=== PATIENT | male | born 1955 | race Native Hawaiian/Other Pacific Islander ===

== ENCOUNTER 2016-09-02 10:57 | Outpatient (CLI) | payer OTHER ==
[~2016-09-02 10:57] MED LIST: ASPIRIN81 M2 OR; CARV6.25 PO; CETIRIZINE10 MG PO; CLOPIDOGREL75 MG PO; FLUT0.05 NAS; FURO40TA93 PO; LEVAQUIN500 MG OR; LISITAB PO; MELOXICAM15 MG OR; METHYLPRED4 M1 PO; NITROSTAT0.4 MG SL; OMEPRAZOLE20.6 MGDR OR; PROAIR HFA IN
[2016-09-02 11:25] LABS: PLATELET COUNT 129 K/uL (142-355)
[2016-09-02 11:52] LABS: POTASSIUM 4.3 mmol/L (3.6-5.2); SODIUM 133 mmol/L (136-145)
== END 2016-09-02 11:57 | disposition home or self-care (01) ==
LOC: LABW 10:57
PROVIDERS: Internal Medicine Cardiovascular Disease
DX: R06.02 Shortness of breath (principal); J44.9 Chronic obstructive pulmonary disease, unspecified
CPT/HCPCS: 36415; 80048; 83880; 85027

== ENCOUNTER 2016-09-12 05:11 | Emergency (ER) | payer OTHER ==
[~2016-09-12] VITALS: Ht 165.1 cm; Wt 86.2 kg
[2016-09-12] MEDS ORDERED: NEURONTIN 100M100 MG PO (05:51)
[2016-09-12] MEDS ORDERED: RANO1000T PO (05:52)
[2016-09-12] MEDS ORDERED: PRAS10TA PO (05:52)
[2016-09-12] MEDS ORDERED: DIPH25CA90 PO (05:53)
[2016-09-12] MEDS ORDERED: LIPITOR10 MG PO (05:54)
[2016-09-12] MEDS ORDERED: PRINIVIL10 MG PO (05:55)
[2016-09-12 05:59] LABS: PLATELET COUNT 270 K/uL (142-355)
[2016-09-12] MEDS ORDERED: ALBUTEROL0.083 % IN (06:03)
[2016-09-12 06:10] LABS: POTASSIUM 4.8 mmol/L (3.6-5.2); SODIUM 130 mmol/L (136-145)
[2016-09-12 07:43] VITALS: BP 136/51; TEMP 98.1
== END 2016-09-12 07:45 | disposition short-term general hospital (02) ==
LOC: ED 05:11
PROVIDERS: Specialist
DX: I21.29 ST elevation (STEMI) myocardial infarction involving other sites (principal)
CPT/HCPCS: 36415; 80053; 82550; 84484; 85027; 85610; 85730; 96365; 96366; 96374; 96375; 96376; 99291; J1644; J2270; J2405; J3490

== ENCOUNTER 2016-09-12 07:54 | Outpatient (CLI) | payer OTHER ==
[~2016-09-12 07:54] MED LIST changes: +ALBUTEROL0.083 % IN; +DIPH25CA90 PO; +LIPITOR10 MG PO; +NEURONTIN 100M100 MG PO; +PRAS10TA PO; +PRINIVIL10 MG PO; +RANO1000T PO
== END 2016-09-12 09:04 | disposition short-term general hospital (02) ==
LOC: AMB 07:54
DX: I21.29 ST elevation (STEMI) myocardial infarction involving other sites (principal)
CPT/HCPCS: A0425; A0427

== ENCOUNTER 2016-09-23 12:32 | Outpatient (CLI) | payer OTHER ==
[2016-09-23 12:58] LABS: POTASSIUM 4.6 mmol/L (3.6-5.2); SODIUM 132 mmol/L (136-145)
== END 2016-09-23 23:45 | disposition home or self-care (01) ==
LOC: LABW 12:32
PROVIDERS: Internal Medicine Cardiovascular Disease
DX: I50.9 Heart failure, unspecified (principal); Z79.899 Other long term (current) drug therapy; Z51.81 Encounter for therapeutic drug level monitoring
CPT/HCPCS: 80048; 83880

== ENCOUNTER 2016-11-10 11:26 | Outpatient (CLI) | payer OTHER | END 2016-11-10 11:36 | disposition short-term general hospital (02) | LOC: AMB 11:26 | DX: R06.02 Shortness of breath (principal); R07.89 Other chest pain; I49.8 Other specified cardiac arrhythmias | CPT/HCPCS: A0425; A0427 ==

== ENCOUNTER 2016-11-10 18:42 | Outpatient (CLI) | payer OTHER | END 2016-11-10 19:55 | disposition short-term general hospital (02) | LOC: AMB 18:42 | DX: R06.09 Other forms of dyspnea (principal); R07.89 Other chest pain; J96.90 Respiratory failure, unspecified, unspecified whether with hypoxia or hypercapnia; I48.92 Unspecified atrial flutter; I45.81 Long QT syndrome; Z98.890 Other specified postprocedural states; Z79.899 Other long term (current) drug therapy | CPT/HCPCS: A0425; A0427 ==

== ENCOUNTER 2017-06-30 10:56 | Outpatient (CLI) | payer OTHER ==
[2017-06-30 11:17] LABS: POTASSIUM 4.3 mmol/L (3.6-5.2); SODIUM 134 mmol/L (136-145)
== END 2017-06-30 19:11 | disposition home or self-care (01) ==
LOC: LABW 10:56
PROVIDERS: Internal Medicine Cardiovascular Disease
DX: I50.9 Heart failure, unspecified (principal); Z79.899 Other long term (current) drug therapy; Z51.81 Encounter for therapeutic drug level monitoring
CPT/HCPCS: 36415; 80048; 83880

== ENCOUNTER 2017-07-19 10:16 | Outpatient (CLI) | payer OTHER ==
[2017-07-19 10:56] LABS: PLATELET COUNT 303 K/uL (142-355)
== END 2017-07-19 19:05 | disposition home or self-care (01) ==
LOC: LABW 10:16
PROVIDERS: Internal Medicine Cardiovascular Disease
DX: Z79.899 Other long term (current) drug therapy (principal); Z51.81 Encounter for therapeutic drug level monitoring
CPT/HCPCS: 36415; 80048; 85027

== ENCOUNTER 2017-09-06 09:16 | Inpatient (IN) | payer OTHER ==
[~2017-09-06] VITALS: Ht 162.6 cm; Wt 83.5 kg
[2017-09-06 09:05] VITALS: BP 140/73; TEMP 98.4
[2017-09-06 09:25] VITALS: BP 134/53
[2017-09-06 09:47] LABS: PLATELET COUNT 364 K/uL (142-355)
[2017-09-06 09:53] LABS: POTASSIUM 5.1 mmol/L (3.6-5.2)
[2017-09-06 10:05] VITALS: BP 123/68
[2017-09-06 13:01] VITALS: BP 111/49; TEMP 97.8; Ht 162.6 cm; Wt 83.5 kg
[2017-09-06] MEDS ORDERED: ELIQUIS2.5 MG OR (13:19)
[2017-09-06] MEDS ORDERED: ENTRESTO 24-261 TAB PO (13:21)
[2017-09-06] MEDS ORDERED: SPIRONOLACT25 MG PO (13:21)
[2017-09-06] MEDS ORDERED: CARV12.5 PO (13:24)
[2017-09-06] MEDS ORDERED: PACERONE200 MG OR (13:26)
[2017-09-06 16:00] VITALS: BP 114/51; TEMP 97.7
[2017-09-06 20:21] VITALS: BP 125/67; TEMP 97.5
[2017-09-07] VITALS: BP 126/66; TEMP 97.5
[2017-09-07 04:00] VITALS: BP 114/59; TEMP 97.8
[2017-09-07 06:07] LABS: POTASSIUM 4.1 mmol/L (3.6-5.2)
[2017-09-07 06:28] LABS: PLATELET COUNT 270 K/uL (142-355)
[2017-09-07 08:00] VITALS: BP 134/56; TEMP 98.3
[2017-09-07 11:31] VITALS: BP 133/69; TEMP 97.7
[2017-09-07 16:00] VITALS: BP 131/65; BP 146/64; TEMP 98.6; TEMP 98.8
[2017-09-07 20:00] VITALS: BP 131/66; TEMP 97.4
[2017-09-08] VITALS: BP 140/59; TEMP 97.1
[2017-09-08 04:00] VITALS: BP 128/60; TEMP 97.7
[2017-09-08 05:01] LABS: PLATELET COUNT 309 K/uL (142-355)
[2017-09-08 05:17] LABS: POTASSIUM 4.4 mmol/L (3.6-5.2)
[2017-09-08 20:10] VITALS: BP 117/66; TEMP 97.5
[2017-09-08 23:57] VITALS: BP 105/38; TEMP 97.8
[2017-09-09 04:00] VITALS: BP 112/41; TEMP 97.9
[2017-09-09 05:51] LABS: POTASSIUM 3.7 mmol/L (3.6-5.2)
[2017-09-09 06:10] LABS: PLATELET COUNT 247 K/uL (142-355)
[2017-09-09 07:58] VITALS: BP 112/56; TEMP 97.7
[2017-09-09 11:48] VITALS: BP 101/47; TEMP 97.9
[2017-09-09] MEDS ORDERED: SPIR50TA8 PO (13:26)
[2017-09-09] MEDS ORDERED: PROTONIX 40MG TAB PO (13:26)
== END 2017-09-09 13:55 | disposition home or self-care (01) | DRG 291 ==
LOC: ED 09:16 → MED/SURG 09:18
PROVIDERS: ADMIT Family Medicine
DX: I13.0 Hypertensive heart and chronic kidney disease with heart failure and stage 1 through stage 4 chronic kidney disease, or unspecified chronic kidney disease (principal); I50.31 Acute diastolic (congestive) heart failure; N18.3 Chronic kidney disease, stage 3 (moderate); I25.2 Old myocardial infarction; J44.9 Chronic obstructive pulmonary disease, unspecified; N40.0 Benign prostatic hyperplasia without lower urinary tract symptoms
CPT/HCPCS: 36415; 36600; 80048; 80053; 82805; 83880; 84484; 85027; 93005; 93306; 94640; 94664; 94760; 96372; 96374; 96375; 99284; J1650; J1885; J1940; J2270; J2920

== ENCOUNTER → 2017-09-22 12:30 | Outpatient (CLI) | payer OTHER ==
[~2017-09-22 12:30] MED LIST changes: +CARV12.5 PO; +ELIQUIS2.5 MG OR; +ENTRESTO 24-261 TAB PO; +PACERONE200 MG OR; +PROTONIX 40MG TAB PO; +SPIR50TA8 PO; +SPIRONOLACT25 MG PO
[2017-09-22 13:28] LABS: POTASSIUM 4.5 mmol/L (3.6-5.2)
== END | disposition home or self-care (01) ==
LOC: LABW 12:30
PROVIDERS: Internal Medicine Cardiovascular Disease
DX: I50.9 Heart failure, unspecified (principal); Z79.899 Other long term (current) drug therapy; Z51.81 Encounter for therapeutic drug level monitoring
CPT/HCPCS: 36415; 80048; 83880

== ENCOUNTER 2017-11-10 10:39 | Outpatient (CLI) | payer OTHER ==
[2017-11-10 11:17] LABS: POTASSIUM 5.1 mmol/L (3.6-5.2)
[2017-11-10 11:19] LABS: PLATELET COUNT 215 K/uL (142-355)
== END 2017-11-11 10:39 | disposition home or self-care (01) ==
LOC: LABW 10:39
PROVIDERS: Internal Medicine Cardiovascular Disease
DX: Z79.899 Other long term (current) drug therapy (principal); Z51.81 Encounter for therapeutic drug level monitoring
CPT/HCPCS: 36415; 80048; 80076; 85027

== ENCOUNTER 2018-03-21 10:39 | Outpatient (CLI) | payer OTHER ==
[2018-03-21 11:21] LABS: POTASSIUM 3.9 mmol/L (3.6-5.2)
== END 2018-03-21 20:26 | disposition home or self-care (01) ==
LOC: LABW 10:39
PROVIDERS: Internal Medicine Nephrology
DX: Z79.899 Other long term (current) drug therapy (principal)
CPT/HCPCS: 36415; 80048

== ENCOUNTER 2018-03-24 12:55 | Observation (INO) | payer OTHER ==
[~2018-03-24] VITALS: Ht 162.6 cm; Wt 62.7 kg
[2018-03-24 13:06] VITALS: BP 114/40; TEMP 99.9
[2018-03-24] MEDS ORDERED: STOOL SOFTNR100 MG OR (13:17)
[2018-03-24] MEDS ORDERED: PANTOPRAZOLE 40MG TA PO (13:17)
[2018-03-24] MEDS ORDERED: ATEN25TA21 PO (13:18)
[2018-03-24] MEDS ORDERED: RAMI2.5C2 PO (13:18)
[2018-03-24] MEDS ORDERED: CLOPIDOGREL75 MG PO (13:19)
[2018-03-24 13:45] LABS: PLATELET COUNT 385 K/uL (142-355)
[2018-03-24 13:49] LABS: POTASSIUM 4.2 mmol/L (3.6-5.2)
[2018-03-24 14:15] VITALS: BP 114/45
[2018-03-24 17:04] VITALS: BP 106/55; TEMP 98; Ht 162.6 cm; Wt 62.7 kg
[2018-03-24 20:20] VITALS: BP 105/51; TEMP 97.6
[2018-03-25 00:20] VITALS: BP 112/54; TEMP 97.9
--- NOTE | 2018-03-25 03:24 | NUR ---
@ 2039 SUPPORT SERVICES COORDINATOR CALLED DR BHANDARI ABOUT PATIENTS OUTPUT, NEW ORDERS RECEIVED AND CARRIED OUT, PT TO BE ON STRICT I&O, ALLOWED ONLY 2 LITERS OF INPUT PER 24 HOURS, AND LASIX 40MG Q8 HRS X2, DR BHANDARI WILL REASSESS PT TOMORROW AND DECIDE WHETHER OR NOT TO START DIALYSIS
[2018-03-25 04:29] VITALS: BP 105/48; TEMP 99.3
[2018-03-25 05:07] LABS: PLATELET COUNT 370 K/uL (142-355)
[2018-03-25 05:18] LABS: POTASSIUM 4.6 mmol/L (3.6-5.2)
[2018-03-25 08:00] VITALS: BP 106/51; TEMP 98.3
[2018-03-25 12:00] VITALS: BP 100/57; TEMP 97.6
--- NOTE | 2018-03-25 12:00 | NUR ---
REPORT CALLED TO GISELA LEONARD AT [facility] IN [place]. ALL PERTINENT INFORMATION RELATING TO THE PATIENT ANSWERED. EXPLAINED TO ACCEPTING NURSE THAT THE PATIENT MAY BE A LITTLE WHILE COMING. NURSE UNDERSTOOD ALL INFORMATION GIVEN.
--- NOTE | 2018-03-25 14:00 | NUR ---
[facility] AT BEDSIDE TO TRANSPORT PATIENT. PT AMBULATED TO STRETCHER. O2 INTACT. PT TOLERATING WELL. NAD NOTED.
== END 2018-03-25 14:15 | disposition short-term general hospital (02) ==
LOC: ED 12:55 → MED/SURG 14:16
DX: I13.2 Hypertensive heart and chronic kidney disease with heart failure and with stage 5 chronic kidney disease, or end stage renal disease (principal); N18.6 End stage renal disease; I50.31 Acute diastolic (congestive) heart failure; R06.02 Shortness of breath; I25.10 Atherosclerotic heart disease of native coronary artery without angina pectoris; D72.828 Other elevated white blood cell count; I42.8 Other cardiomyopathies; D47.3 Essential (hemorrhagic) thrombocythemia
CPT/HCPCS: 36415; 80053; 83735; 83880; 85027; 94664; 94760; 99220; 99283; G0378; J0696; J1940

== ENCOUNTER 2018-05-12 13:17 | Outpatient (CLI) | payer OTHER ==
[~2018-05-12 13:17] MED LIST changes: +ATEN25TA21 PO; +PANTOPRAZOLE 40MG TA PO; +RAMI2.5C2 PO; +STOOL SOFTNR100 MG OR
[2018-05-12 13:56] LABS: PLATELET COUNT 272 K/uL (142-355)
[2018-05-12 14:00] LABS: POTASSIUM 3.7 mmol/L (3.6-5.2)
== END 2018-05-12 19:48 | disposition home or self-care (01) ==
LOC: LABW 13:17
PROVIDERS: Internal Medicine
DX: N18.3 Chronic kidney disease, stage 3 (moderate) (principal); I10 Essential (primary) hypertension
CPT/HCPCS: 36415; 80053; 81000; 82043; 82330; 82570; 83735; 84100; 84155; 85027

== ENCOUNTER 2018-06-08 13:44 | Outpatient (CLI) | payer OTHER ==
[2018-06-08 18:09] LABS: POTASSIUM 2.6 mmol/L (3.6-5.2)
== END 2018-06-08 18:53 | disposition home or self-care (01) ==
LOC: LABW 13:44
PROVIDERS: Internal Medicine Cardiovascular Disease
DX: Z79.899 Other long term (current) drug therapy (principal); I25.10 Atherosclerotic heart disease of native coronary artery without angina pectoris; E78.5 Hyperlipidemia, unspecified; Z79.01 Long term (current) use of anticoagulants; I10 Essential (primary) hypertension
CPT/HCPCS: 36415; 80048; 83880

== ENCOUNTER 2018-09-07 14:03 | Outpatient (CLI) | payer OTHER ==
[2018-09-07 14:25] LABS: POTASSIUM 3.9 mmol/L (3.6-5.2)
== END 2018-09-07 22:14 | disposition home or self-care (01) ==
LOC: LABW 14:03
PROVIDERS: Internal Medicine Cardiovascular Disease
DX: I50.9 Heart failure, unspecified (principal); Z79.899 Other long term (current) drug therapy
CPT/HCPCS: 36415; 80048; 83880

== ENCOUNTER 2018-11-08 11:45 | Outpatient (CLI) | payer OTHER | END 2018-11-08 19:40 | disposition home or self-care (01) | LOC: RAD 11:45 | DX: M79.602 Pain in left arm (principal) ==

== ENCOUNTER 2019-01-24 12:24 | Outpatient (CLI) | payer OTHER ==
[2019-01-24 13:18] LABS: PLATELET COUNT 196 K/uL (142-355)
[2019-01-24 13:39] LABS: POTASSIUM 3.7 mmol/L (3.6-5.2); SODIUM 142 mmol/L (136-145)
== END 2019-01-24 20:32 | disposition home or self-care (01) ==
LOC: LABW 12:24 → RESP 13:00 → LABW 20:32
PROVIDERS: Internal Medicine Sleep Medicine
DX: J44.9 Chronic obstructive pulmonary disease, unspecified (principal); N18.3 Chronic kidney disease, stage 3 (moderate); N25.81 Secondary hyperparathyroidism of renal origin
CPT/HCPCS: 36415; 80053; 81000; 82306; 82330; 82570; 83735; 83970; 84100; 84155; 85027